=== PATIENT | male | born 1955 | race Caucasian/White ===

== ENCOUNTER 2020-07-01 06:03 | Inpatient (IN) ==
[~2020-07-01 06:03] MED LIST: Buffered Lidocaine 1% SYRIN 1 ml INTRADERM ONE; Famotidine IV 10 MG/ML 2 ml VIAL (20 mg) IV ONE; Lactated Ringers 1000 ml BAG 1,000 ML IV SCH
[2020-07-01] MEDS ORDERED: ceFAZolin 1 GM ADVAN 1 GM ADDV.VIAL IVPB ONE (06:53)
[2020-07-01] MEDS ORDERED: Heparin 5000 UNITS/ML 1 mL VIAL ONE (06:53)
[2020-07-01] MEDS ORDERED: ceFAZolin 2 GM PREMIX 2 GM/50 ML BAG ONE (06:53)
[2020-07-01] MEDS ORDERED: Famotidine IV 10 MG/ML 2 ml VIAL (20 mg) ONE (06:54)
[2020-07-01] MEDS ORDERED: Buffered Lidocaine 1% SYRIN 1 ml INTRADERM ONE (06:54)
[2020-07-01] MEDS ORDERED: Bupivacaine 0.25% w/EPI 10 ML SDV ONE (07:00)
[2020-07-01] MEDS ORDERED: Lidocaine 2% PF 5 ML VIAL ONE (07:15)
[2020-07-01] MEDS ORDERED: Dexamethasone IV 4 MG/ML VIAL 1 ml VIAL ONE (07:15)
[2020-07-01] MEDS ORDERED: Propofol 10 MG/ML 20 ML BTL ONE (07:15)
[2020-07-01] MEDS ORDERED: Rocuronium 50 mg VIAL 10 mg/ml 5 ml VIAL (50 mg) ONE ×2 (07:15→08:24)
[2020-07-01] MEDS ORDERED: Ondansetron 4 mg VIAL 2 MG/ML 2 ml VIAL ONE (07:15)
[2020-07-01] MEDS ORDERED: fentaNYL 250 mcg/5 ml 50 MCG/ML 5 ml VIAL (250 MCG) ONE (07:16)
[2020-07-01] MEDS ORDERED: Midazolam 5 mg/5 ml VIAL 1 mg/ml 5 ml VIAL (5 mg) ONE (07:16)
[2020-07-01] MEDS ORDERED: Ketamine HCL 50 mg/ml 10 ml VIAL (500 MG) ONE (07:16)
[2020-07-01] MEDS ORDERED: EPHEDrine (Pressors) 50 MG/ML VIAL ONE (08:17)
[2020-07-01] MEDS ORDERED: Ondansetron 4 mg VIAL 2 MG/ML 2 ml VIAL IV PRN (08:56)
[2020-07-01] MEDS ORDERED: Naloxone 0.4 mg VIAL 0.4 mg/ml 1 ml VIAL IV PRN (08:56)
[2020-07-01] MEDS ORDERED: fentaNYL 100 mcg/2 ml 50 MCG/ML VIAL IV PRN (08:56)
[2020-07-01] MEDS ORDERED: fentaNYL 100 mcg/2 ml 50 MCG/ML VIAL ONE ×2 (09:10→10:41)
[2020-07-01] MEDS ORDERED: Acetaminophen IV 1 GM/100ML 100 ML ONE (09:25)
[2020-07-01] MEDS ORDERED: Sugammadex 500 MG/5 ML 5 ml VIAL IV PUSH ONE (09:49)
[2020-07-01] MEDS ORDERED: HYDROmorphone 1 MG/1 ML SYRINGE ONE (09:51)
[2020-07-01] MEDS ORDERED: HYDROcodone/ACET. 7.5/325 LIQ 15 ML UDC PO PRN (10:17)
[2020-07-01] MEDS ORDERED: HYDROmorphone 0.5 MG/0.5 ML SYRINGE IV SLOW PU PRN (10:17)
[2020-07-01] MEDS ORDERED: diPHENhydraMINE IV 50 MG/ML 1 ml VIAL (BENADRYL) SLOW PUSH PRN (10:17)
[2020-07-01] MEDS: HYDROmorphone 1 MG/1 ML SYRINGE IV SLOW PU PRN ×3 (12:12→22:03)
[2020-07-01] MEDS: Heparin 5000 UNITS/ML 1 mL VIAL SUBCUT SCH ×2 (14:10→22:03)
[2020-07-01] MEDS: Lactated Ringers 1000 ml BAG 1,000 ML IV SCH ×2 (15:21→18:03)
[2020-07-01] MEDS: Metoprolol Tartrate 5 mg VIAL 5 ml VIAL (1 mg/ml) IV PRN (15:34)
[2020-07-01] MEDS: Famotidine IV 10 MG/ML 2 ml VIAL (20 mg) IV SLOW PU SCH (22:03)
[2020-07-02] MEDS: Lactated Ringers 1000 ml BAG 1,000 ML IV SCH ×2 (00:44→07:46)
[2020-07-02] MEDS: HYDROmorphone 1 MG/1 ML SYRINGE IV SLOW PU PRN ×3 (00:53→08:11)
[2020-07-02] MEDS: Heparin 5000 UNITS/ML 1 mL VIAL SUBCUT SCH ×3 (05:05→20:47)
[2020-07-02] MEDS: Ondansetron 4 mg VIAL 2 MG/ML 2 ml VIAL IV PRN ×3 (05:05→13:05)
[2020-07-02 05:21] LABS: ABS Lymphocytes 1.1 10^3/ul (1.0-4.8); ABS Monocytes 0.6 10^3/ul (0-0.8); ABS Neutrophils 5.9 10^3/ul (1.5-7.7); Hematocrit 39 % (42-52); Hemoglobin 13.1 g/dL (14.0-18.0); Lymphocyte % 14.3 %; Mean Corpuscular HGB Conc 34 g/dL (31-36); Mean Corpuscular Hemoglobin 31 pg (27-31); Mean Corpuscular Volume 90 fL (80-94); Mean Platelet Volume 8.5 fL (7.4-10.4); Platelet Count 191 10^3/uL (150-450); Red Blood Count 4.27 10^6 /uL (4.18-5.48); Red Cell Distribution Width 13 % (10-15); White Blood Count 7.6 10^3/uL (3.5-10.8)
[2020-07-02] MEDS: Famotidine IV 10 MG/ML 2 ml VIAL (20 mg) IV SLOW PU SCH ×2 (08:11→20:47)
[2020-07-02] MEDS ORDERED: HYDROcodone/ACET. 7.5/325 LIQ 15 ML UDC PO PRN (11:04)
[2020-07-02] MEDS: Metoprolol Tartrate 5 mg VIAL 5 ml VIAL (1 mg/ml) IV PRN (12:59)
[2020-07-02] MEDS: D5W 1/2 NS KCl 20 meq 1000 ml 1,000 ML IV SCH ×2 (15:47→23:39)
[2020-07-03] MEDS: HYDROmorphone 1 MG/1 ML SYRINGE IV SLOW PU PRN (01:13)
[2020-07-03] MEDS: Heparin 5000 UNITS/ML 1 mL VIAL SUBCUT SCH (04:49)
[2020-07-03 07:48] VITALS: BP 135/75
[2020-07-03] MEDS: Famotidine IV 10 MG/ML 2 ml VIAL (20 mg) IV SLOW PU SCH (08:02)
[2020-07-04] MEDS ORDERED: Scopolamine PATCH Remove NOTE PATCH OFF ONE (06:00)
== END 2020-07-03 09:32 | disposition home or self-care (01) | DRG 621 ==
LOC: AA 06:03 → SSU 11:17
PROVIDERS: ADMIT Surgery; ATTEND Surgery

== ENCOUNTER 2024-02-12 05:57 | Observation (INO) ==
[~2024-02-12 05:57] MED LIST changes: -Buffered Lidocaine 1% SYRIN 1 ml INTRADERM ONE; +Chlorhexidine MOUTHWASH 0.12% 15 ML UDC ONE; -Famotidine IV 10 MG/ML 2 ml VIAL (20 mg) IV ONE; -Lactated Ringers 1000 ml BAG 1,000 ML IV SCH
[2024-02-12] MEDS ORDERED: ceFAZolin 2 GM PREMIX 2 GM/50 ML BAG ONE (06:19)
[2024-02-12] MEDS ORDERED: Thrombin 5,000 UNITS 1 APPLIC KIT - topical use - TOPICAL ONE (06:58)
[2024-02-12] MEDS ORDERED: Lidocaine 1% w EPI 1:100,000 MDV 20 ML VIAL ONE (06:58)
[2024-02-12] MEDS ORDERED: ceFAZolin VIAL VIAL ONE (06:59)
[2024-02-12] MEDS ORDERED: fentaNYL 100 mcg/2 ml 50 MCG/ML VIAL ONE (07:04)
[2024-02-12] MEDS ORDERED: Midazolam 2 mg/2 ml VIAL 1 mg/ml 2 ml VIAL (2 mg) ONE (07:04)
[2024-02-12] MEDS ORDERED: Rocuronium 50 mg VIAL 10 mg/ml 5 ml VIAL (50 mg) ONE (07:06)
[2024-02-12] MEDS ORDERED: Propofol 10 MG/ML 20 ML BTL ONE (07:06)
[2024-02-12] MEDS ORDERED: Lidocaine 2% PF 5 ML VIAL ONE (07:06)
[2024-02-12] MEDS ORDERED: HYDROmorphone 0.5 MG/0.5 ML SYRINGE ONE ×2 (07:54→09:28)
[2024-02-12] MEDS ORDERED: Ondansetron 4 mg VIAL 2 MG/ML 2 ml VIAL ONE (08:03)
[2024-02-12] MEDS ORDERED: Dexamethasone IV 4 MG/ML VIAL 1 ml VIAL ONE (08:03)
[2024-02-12] MEDS ORDERED: Ondansetron 4 mg VIAL 2 MG/ML 2 ml VIAL IV PRN ×2 (08:59→09:56)
[2024-02-12] MEDS ORDERED: Metoclopramide 5 MG/ML VIAL (10 mg) IV PRN (08:59)
[2024-02-12] MEDS ORDERED: Naloxone 0.4 mg VIAL 0.4 mg/ml 1 ml VIAL IV PRN (08:59)
[2024-02-12] MEDS ORDERED: fentaNYL 100 mcg/2 ml 50 MCG/ML VIAL IV PRN (08:59)
[2024-02-12] MEDS ORDERED: Magnesium Hydroxide LIQ 30 ML UDC PO PRN (09:56)
[2024-02-12] MEDS ORDERED: Morphine 2 MG/ML SYRINGE IV PRN (09:56)
[2024-02-12] MEDS ORDERED: Phenol 1.4% Throat Spray BTL MT PRN (09:56)
[2024-02-12] MEDS ORDERED: Senna TAB 8.6 mg TAB PO PRN (09:56)
[2024-02-12] MEDS ORDERED: Dextran 70/Hypromellose Tears Eye Drops 15 ml BTL (for Artificials Tears) BOTH EYES PRN (09:56)
[2024-02-12] MEDS ORDERED: Benzocaine/Menthol LOZ MT PRN (09:56)
[2024-02-12] MEDS ORDERED: Calcium Carb (TUMS) 500 mg CHEW TAB PO PRN (09:56)
[2024-02-12 10:49] LABS: Rapid COVID-19 Molecular Undetected (Undetected)
[2024-02-12] MEDS ORDERED: Acetaminophen IV 1 GM/100ML 1,000 MG/100 ML BAG IV ONE (10:54)
[2024-02-12] MEDS: Acetaminophen IV 1 GM/100ML 1,000 MG/100 ML BAG IV ONE (11:06)
[2024-02-12] MEDS: Lactated Ringers 1000 ml BAG 1,000 ML IV SCH (11:32)
[2024-02-13 09:56] VITALS: BP 153/81
== END 2024-02-13 11:30 | disposition home or self-care (01) ==
LOC: SSU 05:57 → OR 05:57
PROVIDERS: ADMIT Neurological Surgery; ATTEND Neurological Surgery